=== PATIENT | female | born 1985 ===

== ENCOUNTER 2020-10-10 16:22 | Emergency (ER) | payer BC ==
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
== END 2020-10-10 17:18 | disposition home or self-care (01) ==
LOC: MW.ED 16:22
DX: O99.711 Diseases of the skin and subcutaneous tissue complicating pregnancy, first trimester (principal); L81.1 Chloasma; Z88.0 Allergy status to penicillin; Z3A.11 11 weeks gestation of pregnancy
CPT/HCPCS: 99282